=== PATIENT | male | born 1935 | race Caucasian/White ===

== ENCOUNTER 2017-07-26 11:54 | Day surgery (SDC) | payer MEDICARE, OTHER ==
[2017-07-26] MEDS ORDERED: LIDOCAINE HCL 10 APPL CARTRIDGE TP ONE (13:12)
--- NOTE | 2017-07-26 13:33 | OR ---
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 Procedure: #1 flexible cystoscopy with washing for cytology and culture Indications: 81-year-old male post-TURP 2010. Has been having increasing irritative symptomatology and nocturia. Did not respond to Flomax and Proscar. Above-mentioned procedures indicated to assess for obstruction/regrowth and make sure no additional pathology. Description: Consent obtained. Placed in the supine position. Prepped and draped. Time-out taken . Lidocaine jelly introduced to anesthetize and lubricate. Flexible Scope inserted into the urethra and navigated to the bladder with ease. No tumors stones or suspicious lesions. Bladder capacity definitely increased with elevated residual. There is evidence of high pressure change with some diverticula some of which appear fairly large. Ultimately do not know if these predate his original TURP or if there is ongoing obstruction. Ureters normal in number and position. Washing obtained sent for cytology and culture Prostate fossae has been previously resected. On retroflexion fossa looks pretty good but there is anterior tissue falling in and appears partially obstructing. Prostate length is medium and again the posterior and lateral portion of the fossa looks pretty well resected but the anterior tissue does protrude into the lumen. All in all does not look overly obstructing but with continued symptomatology no way to know for certain. There is definitely tissue that can be resected. Normal urethra EBL: 0 Specimen: Washing was obtained sent for cytology and culture Condition: tolerate procedure Important Findings: Large capacity bladder with obstructive change. Anterior regrown tissue. Ultimate question is whether or not he has a component of detrusor failure/incomplete emptying which may be irreversible or if there is ongoing obstruction. Anticholinergic would make me nervous because of the increased residual. TURP makes me nervous because I cannot guarantee improvement if there is permanent damage. For now he will tolerate symptoms. FOLLOW UP: 6 months ultrasound/UA/creatinine/flow
[2017-07-26 14:54] VITALS: BP 137/74
== END 2017-07-26 11:55 | disposition home or self-care (01) ==
LOC: AMB 11:54
PROVIDERS: ATTEND Urology
PROC: 3E1K88X Irrigation of Genitourinary Tract using Irrigating Substance, Via Natural or Artificial Opening Endoscopic, Diagnostic (ICD-10-PCS; 2017-07-26)
PROC: 0TJB8ZZ Inspection of Bladder, Via Natural or Artificial Opening Endoscopic (ICD-10-PCS; principal; 2017-07-26 13:00)
DX: N40.1 Benign prostatic hyperplasia with lower urinary tract symptoms (principal); N13.8 Other obstructive and reflux uropathy; R33.8 Other retention of urine; R35.1 Nocturia; Z68.21 Body mass index [BMI] 21.0-21.9, adult